=== PATIENT | female | born 1960 | race Caucasian/White ===

== ENCOUNTER 2017-05-02 16:09 | Emergency (ER) | payer BC ==
[~2017-05-02] VITALS: Ht 162.6 cm; Wt 70.8 kg
[~2017-05-02 16:09] MED LIST: ALPR.5 PO; Augmentin 875-1 EACH PO; CEPH500 PO; CIPR500 PO; ESOM20 PO; LANS15EC PO; LEVSOD125 PO; LEVSOD175 PO; LISI20 PO; METR500 PO; NORT10 PO; OXYACE5T PO; PRAV10 PO; PROM25 PO; Percocet 5-3251 EACH PO; VENL150ER PO; ZOLP10 PO
[2017-05-02 16:45] LABS: BASOPHILS ABSOLUTE AUTO 0.11 K/mm3 (0.00-0.23); BASOPHILS PERCENT AUTO 1 % (0-2); EOSINOPHILS ABSOLUTE AUTO 0.27 K/mm3 (0.00-0.68); EOSINOPHILS PERCENT AUTO 3 % (0-6); Hematocrit 40.8 % (33.0-51.0); Hemoglobin 13.4 g/dL (11.5-16.0); IMMATURE GRAN ABSOLUTE AUTO 0.01 K/mm3 (0.00-0.10); IMMATURE GRAN PERCENT AUTO 0 % (0-1); LYMPHOCYTES ABSOLUTE AUTO 3.39 K/mm3 (0.84-5.20); LYMPHOCYTES PERCENT AUTO 38 % (21-46); MONOCYTES ABSOLUTE AUTO 0.76 K/mm3 (0.16-1.47); MONOCYTES PERCENT AUTO 9 % (4-13); Mean Corpuscular HGB 30.7 pg (26.0-34.0); Mean Corpuscular HGB Conc 32.8 g/dL (31.5-36.5); Mean Corpuscular Volume 93 fL (80-100); NEUTROPHILS ABSOLUTE AUTO 4.39 K/mm3 (1.96-9.15); NEUTROPHILS PERCENT AUTO 49 % (41-73); Platelet Count 353 K/mm3 (150-400); RDW Coefficient Variation 13.7 % (11.7-14.2); RDW Standard Deviation 47.2 fL (35.1-46.3); Red Blood Cell Count 4.37 M/mm3 (3.80-5.20); White Blood Cell Count 8.93 K/mm3 (4.00-11.30)
[2017-05-02 17:02] LABS: Alanine Aminotransfer (ALT/SGP 25 U/L (12-78); Albumin, Blood 4.1 g/dL (3.4-5.0); Albumin/Globulin Ratio 1.3 (0.8-1.8); Alk Phos 73 U/L (50-136); Anion Gap 6 mmol/L (6-16); Aspartate Aminotrans (AST/SGOT 19 U/L (12-37); Bilirubin, Total 0.3 mg/dL (0.1-1.0); Blood Urea Nitrogen 10 mg/dL (8-24); Bun/Creatinine Ratio 13.1 (12.0-20.0); CO2, Blood 26 mmol/L (21-32); Calcium, Blood 9.1 mg/dL (8.5-10.1); Chloride, Blood 108 mmol/L (98-108); Creatinine, Blood 0.76 mg/dL (0.40-1.00); Globulin, Blood 3.2 g/dL (2.2-4.0); Glomerular Filtration Rate >60 (60-); Glucose, Blood 89 mg/dL (70-99); Potassium, Blood 3.6 mmol/L (3.5-5.5); Sodium, Blood 140 mmol/L (136-145); Total Protein, Blood 7.3 g/dL (6.4-8.2); Troponin I <0.015 ng/mL (0.000-0.040)
== END 2017-05-02 18:22 | disposition home or self-care (01) ==
LOC: ER 16:09
PROVIDERS: Emergency Medicine
DX: R20.0 Anesthesia of skin (principal); R51 Headache; E03.9 Hypothyroidism, unspecified; K21.9 Gastro-esophageal reflux disease without esophagitis; F32.9 Major depressive disorder, single episode, unspecified; Z88.2 Allergy status to sulfonamides; Z91.048 Other nonmedicinal substance allergy status; Z88.5 Allergy status to narcotic agent; Z79.899 Other long term (current) drug therapy; Z86.73 Personal history of transient ischemic attack (TIA), and cerebral infarction without residual deficits; Z86.19 Personal history of other infectious and parasitic diseases; Z90.710 Acquired absence of both cervix and uterus
CPT/HCPCS: 36415; 70450; 71046; 80053; 84484; 85025; 93005; 93010; 99284

== ENCOUNTER 2017-06-21 07:57 | Day surgery (SDC) | payer BC ==
[~2017-06-21] VITALS: Ht 162.6 cm; Wt 69.6 kg
[2017-06-21] MEDS ORDERED: ATOR40TA (08:23)
[2017-06-21] MEDS ORDERED: ACETAMINOPHEN-1 EACH (08:24)
[2017-06-21] MEDS ORDERED: Oxycodone-Apap1 EAC3 (08:24)
== END 2017-06-21 10:24 | disposition home or self-care (01) ==
LOC: ORSCSDS 07:57
PROVIDERS: Internal Medicine Gastroenterology
PROC: 0D758ZZ Dilation of Esophagus, Via Natural or Artificial Opening Endoscopic (ICD-10-PCS; principal; 2017-06-21 09:15)
PROC: 0DBN8ZX Excision of Sigmoid Colon, Via Natural or Artificial Opening Endoscopic, Diagnostic (ICD-10-PCS; principal; 2017-06-21 09:15)
PROC: 0DBM8ZX Excision of Descending Colon, Via Natural or Artificial Opening Endoscopic, Diagnostic (ICD-10-PCS; principal; 2017-06-21 09:15)
DX: K21.9 Gastro-esophageal reflux disease without esophagitis (principal); K22.10 Ulcer of esophagus without bleeding; R13.10 Dysphagia, unspecified; D12.4 Benign neoplasm of descending colon; K63.5 Polyp of colon; K64.4 Residual hemorrhoidal skin tags; K57.30 Diverticulosis of large intestine without perforation or abscess without bleeding; Z12.11 Encounter for screening for malignant neoplasm of colon; Z86.010 Personal history of colon polyps; I10 Essential (primary) hypertension; B18.2 Chronic viral hepatitis C; F17.210 Nicotine dependence, cigarettes, uncomplicated; E03.9 Hypothyroidism, unspecified; Z79.82 Long term (current) use of aspirin; Z79.899 Other long term (current) drug therapy; K64.8 Other hemorrhoids
CPT/HCPCS: 88305; J7120

== ENCOUNTER 2017-08-19 10:22 | Emergency (ER) | payer BC ==
[~2017-08-19] VITALS: Ht 162.6 cm; Wt 72.1 kg
[~2017-08-19 10:22] MED LIST changes: +ACETAMINOPHEN-1 EACH; +ATOR40TA; +Oxycodone-Apap1 EAC3
[2017-08-19] MEDS ORDERED: METR250 PO (10:34)
[2017-08-19] MEDS ORDERED: CLIN150 PO (10:35)
[2017-08-19] MEDS ORDERED: Keflex500 MG PO (12:07)
== END 2017-08-19 13:00 | disposition home or self-care (01) ==
LOC: ER 10:22
DX: N61.0 Mastitis without abscess (principal); K21.9 Gastro-esophageal reflux disease without esophagitis; E03.9 Hypothyroidism, unspecified; F32.9 Major depressive disorder, single episode, unspecified; F17.200 Nicotine dependence, unspecified, uncomplicated; Z88.2 Allergy status to sulfonamides; Z91.048 Other nonmedicinal substance allergy status; Z88.5 Allergy status to narcotic agent; Z79.899 Other long term (current) drug therapy
CPT/HCPCS: 76642; 96372; 99284; J0690; J1885

== ENCOUNTER 2018-11-27 07:35 | Day surgery (SDC) | payer BC ==
[~2018-11-27] VITALS: Ht 162.6 cm; Wt 71.2 kg
[~2018-11-27 07:35] MED LIST changes: -ATOR40TA; +ATOR40TA PO; +Aspirin EC81 MG PO; +CLIN150 PO; +Keflex500 MG PO; +LEVSOD50 PO; +METR250 PO; +Oxycodone-Apap1 EAC3 PO; +POTA10T PO; +Synthroid200 MCG PO
[2018-11-27] MEDS ORDERED: ACET500 (08:16)
--- NOTE | 2018-11-27 09:40 | NUR ---
11/27/18 0940 Donell Carey LATE ENTRY-0910 UPDATED PATIENT ON DELAY. CALL LIGHT WITHIN REACH AND AT BEDSIDE.
== END 2018-11-27 11:30 | disposition home or self-care (01) ==
LOC: ORSCSDS 07:35
PROVIDERS: Orthopaedic Surgery
PROC: 0LB50ZZ Excision of Right Lower Arm and Wrist Tendon, Open Approach (ICD-10-PCS; principal; 2018-11-27 08:45)
DX: M67.431 Ganglion, right wrist (principal); F17.210 Nicotine dependence, cigarettes, uncomplicated
CPT/HCPCS: J0690; J2250; J2405; J2704; J2795; J3010; J7120

== ENCOUNTER 2021-07-12 17:00 | Emergency (ER) | payer BC ==
[~2021-07-12] VITALS: Ht 162.6 cm; Wt 73.5 kg
[~2021-07-12 17:00] MED LIST changes: +ACET500; +Prilosec Otc20 MG PO
== END 2021-07-12 19:34 | disposition home or self-care (01) ==
LOC: ER 17:00
DX: S81.011A Laceration without foreign body, right knee, initial encounter (principal); S81.811A Laceration without foreign body, right lower leg, initial encounter; S90.31XA Contusion of right foot, initial encounter; S50.312A Abrasion of left elbow, initial encounter; E03.9 Hypothyroidism, unspecified; K21.9 Gastro-esophageal reflux disease without esophagitis; F17.200 Nicotine dependence, unspecified, uncomplicated; Z88.2 Allergy status to sulfonamides; Z91.048 Other nonmedicinal substance allergy status; Z88.5 Allergy status to narcotic agent; Z79.899 Other long term (current) drug therapy; Z79.82 Long term (current) use of aspirin; W10.9XXA Fall (on) (from) unspecified stairs and steps, initial encounter
CPT/HCPCS: 12004; 73562-RT; 73630; 99283-25

== ENCOUNTER 2022-11-07 07:59 | Day surgery (SDC) | payer BC, OTHER ==
[~2022-11-07] VITALS: Ht 162.6 cm; Wt 71.2 kg
[2022-11-07] MEDS ORDERED: ALBU90OI INH (08:54)
[2022-11-07] MEDS ORDERED: Budeprion Xl300 MG PO (08:55)
[2022-11-07] MEDS ORDERED: TIZA4 PO (08:55)
[2022-11-07 10:16] VITALS: BP 141/97
== END 2022-11-07 10:18 | disposition home or self-care (01) ==
LOC: ORSCSDS 07:59
PROVIDERS: Internal Medicine Gastroenterology
PROC: 0DBL8ZX Excision of Transverse Colon, Via Natural or Artificial Opening Endoscopic, Diagnostic (ICD-10-PCS; principal; 2022-11-07 09:30)
DX: Z12.11 Encounter for screening for malignant neoplasm of colon (principal); Z86.010 Personal history of colon polyps; D12.3 Benign neoplasm of transverse colon; Z86.19 Personal history of other infectious and parasitic diseases; K57.50 Diverticulosis of both small and large intestine without perforation or abscess without bleeding; K64.8 Other hemorrhoids; K21.9 Gastro-esophageal reflux disease without esophagitis; F32.A Depression, unspecified; J44.9 Chronic obstructive pulmonary disease, unspecified; F17.210 Nicotine dependence, cigarettes, uncomplicated; Z79.899 Other long term (current) drug therapy
CPT/HCPCS: 88305; J2704; J7120